=== PATIENT | female | born 1935 | race Caucasian/White ===

== ENCOUNTER 2016-11-08 22:43 | Emergency (ER) | payer MEDICARE, BC ==
[2016-11-08] MEDS ORDERED: ONDANSETRON HCL/PF 2 MG/ML VIAL IV ONE (22:54)
[2016-11-08] MEDS ORDERED: NORMAL SALINE 1,000 ML IV ONE (22:54)
[2016-11-08] MEDS ORDERED: ONDANSETRON HCL/PF 2 MG/ML VIAL ONE (22:56)
--- NOTE | 2016-11-08 23:00 | ERNOTE ---
Medical Problem HPI - Narrative Date of Service: 11/08/16 - General Chief Complaint: Nausea/Vomiting Time Seen by Provider: 11/08/16 22:52 Source: patient, family Exam Limitations: no limitations - Immun/Allergies/Home Medications Immunizations: IMMUNIZATION HX Immunizations Up to Date Yes History of Influenza Vaccine Yes Hx Pneumococcal Vaccination Yes Allergies/Adverse Reactions: Allergies No Known Allergies Allergy (Verified 11/08/16 22:54) Home Medications: HOME MEDICATIONS Bisoprolol Fumarate [Zebeta] 10 mg PO DAILY 11/12/15 [Last Taken Unknown] Hydrochlorothiazide [Hydrodiuril] 25 mg PO DAILY 11/12/15 [Last Taken Unknown] Potassium Chloride [Klor-Con M20] 20 meq PO BID 11/12/15 [Last Taken Unknown] Simvastatin [Zocor] 20 mg PO HS 11/12/15 [Last Taken Unknown] Travoprost [Travatan Z] 1 drop OP HS 11/12/15 [Last Taken Unknown] Omeprazole [Prilosec] 20 mg PO DAILY 11/15/15 [Last Taken Unknown] Aspirin [Aspirin Enteric Coated] 81 mg PO DAILY 08/06/16 [Last Taken Unknown] Fluticasone Propionate [Flonase] 1 spray NS DAILY 08/06/16 [Last Taken Unknown] Losartan Potassium [Cozaar] 100 mg PO DAILY 08/06/16 [Last Taken Unknown] Lutein 20 mg PO DAILY 08/06/16 [Last Taken Unknown] - History of Present History Narrative: 81-year-old female states she began having nausea and vomiting around 9:00 this evening and has vomited multiple times. She has not had diarrhea. She denies other constitutional signs or symptoms. She denies cold cough fever, sore throat or abdominal pain. She has been taking potassium tablets and she took her last dose at 4 PM this afternoon and her thinks that this may be the cause of the nausea and vomiting. Review of Systems - Review of Systems Constitutional: Present: See HPI EYE: Present: no symptoms reported ENT: Present: no symptoms reported Respiratory: Present: no symptoms reported Cardiology: Present: no symptoms reported Gastrointestinal/Abdominal: Present: See HPI Genitourinary: Present: no symptoms reported Musculoskeletal: Present: no symptoms reported Skin: Present: no symptoms reported Neurological: Present: no symptoms reported Endocrine: Present: no symptoms reported Hematologic/Lymphatic: Present: no symptoms reported Psych: Present: no symptoms reported - Patient's Past Medical History Patient History - Medical: No pertinent hx Patient History - Cancer: No Hx of Cancer Patient History - Surgical Procedures: Cataracts, Colonoscopy, EGD, Hysterectomy , T & A - Family History Mother Family History - Medical: , Cataracts Family History - Cardiac/Respiratory: Hypertension Father Family History - Medical: Family History - Cardiac/Respiratory: No pertinent hx - Social History Living Situations: home Smoking Status: Never smoker Patient requests Smoking Cessation Consult: No Initiate information on Smoking Cessation: No Alcohol Use: none Drug Use: none Physical Exam - Physical Exam General Appearance: Present: wd/wn, alert, no apparent distress Eye Exam: Normal inspection: bilateral, PERRL: bilateral Ears, Nose, Throat: Present: normal ENT inspection, hearing grossly normal, normal pharynx Neck: Present: normal inspection, nontender Respiratory: Present: no respiratory distress, normal breath sounds, no accessory muscle use, chest nontender, lungs clear Cardiovascular/Chest: Present: regular rate, rhythm, no murmur, normal peripheral pulses Gastrointestinal/Abdominal: Present: normal bowel sounds, nondistended, soft, no organomegaly, tenderness - mild epigastric. Absent: guarding, rebound Rectal Exam: Present: deferred Back Exam: Present: normal inspection, normal range of motion, no CVA tenderness , no vertebral tenderness Extremity Exam: Present: normal inspection, non-tender, no edema, normal range of motion Neurological Exam: Present: alert, oriented, normal mood/affect, no motor/ sensory deficits Skin Exam: Present: normal color, warm/dry Lymphatic Exam: Present: no adenopathy ED Progress - Results and Orders Patient's Lab Results:: I have reviewed the patient's lab results. Results and Orders: CBC differential essentially within normal limits - Vital Signs Patient's Vital Signs:: I have reviewed the patient's vital signs. Vital Signs: Vital Signs 11/08/16 22:49 Temperature 35.9 C L Pulse Rate 65 Respiratory 20 Rate O2 Sat by Pulse 99 Oximetry - Progress/Reassessment Chief Complaint: Nausea/Vomiting Progress:: Improved Progress Note-Subjective: 11/08/16 23:49 Patient improved with IV fluids and Zofran and able to be discharged to continue fluid replacement on clear liquids and Gatorade Departure - Departure Clinical Impression: Acute gastroenteritis Disposition: Home self-care Instructions: Viral Gastroenteritis, Adult, [id number] Additional Instructions: Continue fluid replacement with clear liquids and Gatorade. Use over-the- counter Imodium if needed for diarrhea. Follow-up with your doctor if not better in a few days Referrals: Rebekah Green DO [Primary Care Provider] -
[2016-11-08 23:08] LABS: Hematocrit 39.2 % (37.0-47.0); Hemoglobin 12.8 gm/dL (12.5-16.0); Mean Cell Volume 82.2 fl (78-100); Mean Corpuscular Hemoglobin 26.8 pg (27-31); Mean Corpuscular Hgb Conc 32.7 g/dl (32-36); Mean Platelet Volume 9.3 fl (6.0-9.5); Neutrophil # 10.9 K/mm3 (1.3-6.0); Neutrophil % 84.2 % (42-75.0); Platelet Count 206 K/mm3 (150-450); Red Blood Count 4.77 M/mm3 (4.2-5.4); Red Cell Distribution Width 13.4 % (11.5-14.0); White Blood Count 12.9 K/mm3 (4.0-10.5)
[2016-11-08 23:29] LABS: Albumin * 4.1 gm/dl (3.4-5.0); Anion Gap 17.2 mmol/L (6.8-13.8); BUN/Creatinine Ratio 12.3 (9.0-21.6); Bilirubin, Total 0.5 mg/dL (0.0-1.1); Ca. Corrected For Albumin 9.2 mg/dL (8.4-10.2); Calcium * 9.6 mg/dL (7.9-10.9); Carbon Dioxide 24.3 mmol/L (24-32.6); Potassium 3.5 mmol/L (3.4-4.6); Total Protein 7.6 gm/dL (6.2-8.2)
[2016-11-09 00:10] VITALS: BP 169/71
== END 2016-11-09 00:08 | disposition home or self-care (01) ==
LOC: MERGE 22:43 → ER 22:43
DX: K52.9 Noninfective gastroenteritis and colitis, unspecified (principal); Z90.710 Acquired absence of both cervix and uterus

== ENCOUNTER 2017-02-10 11:10 | Emergency (ER) | payer MEDICARE, BC ==
[2017-02-10 12:08] LABS: Troponin I 0.017 ng/ml (0.00-0.10)
[2017-02-10 12:13] LABS: CKMB 0.9 ng/mL (0.0-9.0)
[2017-02-10 12:56] LABS: Hematocrit 36.1 % (37.0-47.0); Hemoglobin 11.9 gm/dL (12.5-16.0); Mean Cell Volume 80.9 fl (78-100); Mean Corpuscular Hemoglobin 26.7 pg (27-31); Mean Platelet Volume 9.9 fl (6.0-9.5); Neutrophil # 3.3 K/mm3 (1.3-6.0); Neutrophil % 61.8 % (42-75.0); Platelet Count 186 K/mm3 (150-450); Red Blood Count 4.46 M/mm3 (4.2-5.4); Red Cell Distribution Width 13.7 % (11.5-14.0); White Blood Count 5.3 K/mm3 (4.0-10.5)
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
--- OUTSIDE RECORDS SUMMARY | 2017-02-10 13:10 | XMS REPORT | Continuity of Care Document ---
:1935 Author Organization [facility] ([facility]) Address [address] [place] [address] Phone [phone] Care Team Providers Name Role Phone Peewee Shay Castro Primary Care Provider [phone] Source Comments This disclosure is being made pursuant to the Care Everywhere program, applicable federal and state laws, and may not contain all informaitonavailable regarding this patient.[facility] ([facility]) Active Allergies and Adverse Reactions No Active Allergies Current Medications Not on file Active Problems Not on file Social History Tobacco Use Types Packs/Day Years Used Date Never Assessed Last Filed Vital Signs Vital Sign Reading Time Taken Blood Pressure 154/90 08/16/2007 10:01 AM CDT Pulse 55 08/16/2007 10:01 AM CDT Temperature 35.6 C (96.08 F) 08/16/2007 10:01 AM CDT Respiratory Rate - - Height - - Weight 76.599 kg (168 lb 13.9 oz) 08/16/2007 10:01 AM CDT Body Mass Index - - Oxygen Saturation - - Plan of Care Health Maintenance Due Date Last Done Comments Hepatitis B Vaccine (1 of 3 - Primary Series) 1935 Tdap Vaccine 1946 Lipid Disorder Screening 1953 Td Vaccine 1953 Colonoscopy 10/28/1985 Zoster Vaccine 1995 Osteoporosis Screening (DXA Bone Density) 2000 Pneumococcal Vaccine (1 of 2 - PCV13) 2000 Influenza Vaccine: Seasonal (#1) 06/08/2016 Results from Last 3 Months Not on file
[2017-02-10 13:11] LABS: Troponin I Less than 0.017 ng/ml (0.00-0.10)
[2017-02-10 13:12] LABS: ALT 21 U/L (19-67); AST 20 U/L (0-48); Albumin * 3.6 gm/dl (3.4-5.0); Alkaline Phosphatase * 75 U/L (50-170); Anion Gap 13.4 mmol/L (6.8-13.8); BUN/Creatinine Ratio 14.7 (9.0-21.6); Bilirubin, Total 0.4 mg/dL (0.0-1.1); Blood Urea Nitrogen 15 mg/dL (3-23); Carbon Dioxide 26.2 mmol/L (24-32.6); Chloride 102 mmol/L (97-106); Glucose * 106 mg/dL (70-110); Potassium 3.6 mmol/L (3.4-4.6); Sodium 138 mmol/L (132-142)
[2017-02-10 15:37] VITALS: BP 156/58
== END 2017-02-10 15:37 | disposition home or self-care (01) ==
LOC: ER 11:10
DX: I10 Essential (primary) hypertension (principal); E78.5 Hyperlipidemia, unspecified

== ENCOUNTER 2017-02-22 13:53 | Emergency (ER) | payer MEDICARE, BC ==
--- OUTSIDE RECORDS SUMMARY | 2017-02-22 14:59 | XMS REPORT | Continuity of Care Document ---
:1935 Author Organization [facility] ([facility]) Address [address] [place] [address] Phone [phone] Care Team Providers Name Role Phone Peewee Shay Castro Primary Care Provider [phone] Source Comments This disclosure is being made pursuant to the Care Everywhere program, applicable federal and state laws, and may not contain all informaitonavailable regarding this patient.[facility] ([facility]) Active Allergies and Adverse Reactions No Active [...]
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
[2017-02-22 15:35] LABS: Hematocrit 37.1 % (37.0-47.0); Hemoglobin 12.1 gm/dL (12.5-16.0); Mean Cell Volume 82.3 fl (78-100); Mean Corpuscular Hemoglobin 26.8 pg (27-31); Mean Corpuscular Hgb Conc 32.6 g/dl (32-36); Mean Platelet Volume 9.7 fl (6.0-9.5); Neutrophil # 3.7 K/mm3 (1.3-6.0); Neutrophil % 64.1 % (42-75.0); Platelet Count 185 K/mm3 (150-450); Red Blood Count 4.51 M/mm3 (4.2-5.4); Red Cell Distribution Width 13.9 % (11.5-14.0); White Blood Count 5.7 K/mm3 (4.0-10.5)
[2017-02-22 15:52] LABS: ALT 19 U/L (19-67); AST 16 U/L (0-48); Albumin * 3.8 gm/dl (3.4-5.0); Alkaline Phosphatase * 73 U/L (50-170); BUN/Creatinine Ratio 14.9 (9.0-21.6); Bilirubin, Total 0.4 mg/dL (0.0-1.1); Blood Urea Nitrogen 15 mg/dL (3-23); Ca. Corrected For Albumin 8.7 mg/dL (8.4-10.2); Calcium * 8.9 mg/dL (7.9-10.9); Carbon Dioxide 31.5 mmol/L (24-32.6); Chloride 103 mmol/L (97-106); Glucose * 115 mg/dL (70-110); Potassium 3.5 mmol/L (3.4-4.6); Sodium 142 mmol/L (132-142); Total Protein 7.3 gm/dL (6.2-8.2); Troponin I Less than 0.017 ng/ml (0.00-0.10)
[2017-02-22 16:03] LABS: Urine Bilirubin Negative (NEGATIVE); Urine Blood 25 /ul (NEGATIVE); Urine Ketone Negative (NEGATIVE); Urine Nitrite Negative (NEGATIVE); Urine Protein Negative (NEGATIVE); Urine Urobilinogen Normal (NORMAL)
[2017-02-22 16:10] LABS: Urine Appearance Clear; Urine Bacteria None Seen; Urine Color Yellow; Urine RBC 0-5 /hpf (0-5); Urine WBC 0-5 /hpf (0-5)
[2017-02-22 17:08] VITALS: BP 177/76
== END 2017-02-22 17:17 | disposition home or self-care (01) ==
LOC: ER 13:53
DX: I10 Essential (primary) hypertension (principal); N30.01 Acute cystitis with hematuria; E78.5 Hyperlipidemia, unspecified

== ENCOUNTER 2017-12-03 07:27 | Emergency (ER) | payer MEDICARE, BC ==
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
[2017-12-03 08:29] LABS: Hematocrit 32.7 % (37.0-47.0); Hemoglobin 10.3 gm/dL (12.5-16.0); Mean Cell Volume 74.8 fl (78-100); Mean Corpuscular Hemoglobin 23.6 pg (27-31); Mean Corpuscular Hgb Conc 31.5 g/dl (32-36); Mean Platelet Volume 8.6 fl (6.0-9.5); Neutrophil # 4.1 K/mm3 (1.3-6.0); Neutrophil % 70.2 % (42-75.0); Platelet Count 189 K/mm3 (150-450); Red Blood Count 4.37 M/mm3 (4.2-5.4); Red Cell Distribution Width 14.3 % (11.5-14.0); White Blood Count 5.8 K/mm3 (4.0-10.5)
[2017-12-03 08:45] LABS: Anion Gap 8.7 mmol/L (6.8-13.8); BUN/Creatinine Ratio 15.8 (9.0-21.6); Blood Urea Nitrogen 18 mg/dL (3-23); Calcium * 8.8 mg/dL (7.9-10.9); Carbon Dioxide 30.7 mmol/L (24-32.6); Chloride 102 mmol/L (97-106); Glucose * 108 mg/dL (70-110); Potassium 3.4 mmol/L (3.4-4.6); Sodium 138 mmol/L (132-142); Troponin I Less than 0.017 ng/ml (0.00-0.10)
[2017-12-03 08:50] LABS: Urine Bilirubin Negative (NEGATIVE); Urine Blood 25 /ul (NEGATIVE); Urine Ketone Negative (NEGATIVE); Urine Nitrite Negative (NEGATIVE); Urine Protein Negative (NEGATIVE); Urine Urobilinogen Normal (NORMAL)
[2017-12-03] MEDS ORDERED: hydrALAZINE HCL 20 MG/ML VIAL IV ONE (08:57)
[2017-12-03 09:03] LABS: Urine Appearance Clear; Urine Bacteria TRACE; Urine Color Pale Yellow; Urine WBC TRACE /hpf (0-5)
[2017-12-03 09:55] VITALS: BP 166/74
== END 2017-12-03 09:56 | disposition home or self-care (01) ==
LOC: ER 07:27
DX: Z87.440 Personal history of urinary (tract) infections; N39.0 Urinary tract infection, site not specified; D64.9 Anemia, unspecified; I10 Essential (primary) hypertension

== ENCOUNTER 2017-12-07 15:50 | Emergency (ER) | payer MEDICARE, BC ==
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
[2017-12-07 16:52] LABS: Urine Bilirubin Negative (NEGATIVE); Urine Ketone Negative (NEGATIVE); Urine Nitrite Negative (NEGATIVE); Urine Protein Negative (NEGATIVE); Urine Urobilinogen Normal (NORMAL); Urine pH 6.5 pH (5.0-7.0)
[2017-12-07 17:03] LABS: Urine Appearance Clear; Urine Bacteria TRACE; Urine Blood 5 /ul (NEGATIVE); Urine Color Yellow; Urine RBC None Seen /hpf (0-5); Urine WBC None Seen /hpf (0-5)
[2017-12-07 17:04] LABS: Urine Amorphous Sediment Few - 1+ (NONE-FEW); Urine Hyaline Cast 0-5 /LPF
[2017-12-09 09:13] VITALS: BP 138/86
== END 2017-12-07 17:25 | disposition home or self-care (01) ==
LOC: ER 15:50
DX: K62.89 Other specified diseases of anus and rectum (principal); I10 Essential (primary) hypertension; Z87.440 Personal history of urinary (tract) infections